=== PATIENT | male | born 1950 | race Two or more races ===

== ENCOUNTER 2018-12-06 16:18 | Emergency (ER) | payer OTHER ==
[~2018-12-06] VITALS: Ht 170.2 cm; Wt 86.2 kg
[2018-12-06] MEDS ORDERED: VASOTEC20 M1 (17:09)
[2018-12-06] MEDS ORDERED: PRILOSEC OTC20 MG (17:09)
[2018-12-06] MEDS ORDERED: METFORMIN HCL500 M1 (17:09)
== END 2018-12-06 22:15 | disposition home or self-care (01) ==
LOC: ER 16:18
DX: R33.8 Other retention of urine (principal)